=== PATIENT | female | born 1940 | race Caucasian/White ===

== ENCOUNTER 2019-02-22 20:30 | Emergency (ER) | payer MEDICARE, BC ==
[2019-02-22 20:47] VITALS: BP 155/95
[2019-02-22] MEDS ORDERED: DOXYcycline CAP(*) 100 MG PO ONE (21:15)
--- NOTE | 2019-02-22 21:15 | UC ---
Bite Injury/Animal HPI - HPI Summary HPI Summary: 79-year-old woman comes in with a chief complaint of a tick on her right lower leg. Patient noticed tonight bled on her own. She's not sure how long its been in there. There is a red ring around the area where she did take out. She 's not sure she got that are not. Feels well otherwise. - History of Current Complaint Chief Complaint: UCSkin Stated Complaint: TICK BITE Time Seen by Provider: 02/22/19 20:56 Pain Intensity: 0 - Allergies/Home Medications Allergies/Adverse Reactions: Allergies Allergy/AdvReac Type Severity Reaction Status Date / Time No Known Allergies Allergy Unverified 02/22/19 20:48 Home Medications: Home Medications Ibuprofen/Diphenhydramine HCl [Ibuprofen Pm 200-25 mg] 1 cap PO QPM 02/22/19 [ History Confirmed 02/22/19] PMH/Surg Hx/FS Hx/Imm Hx Previously Healthy: Yes - Surgical History Surgical History: Yes Surgery Procedure, Year, and Place: HYSTERECTOMY 15 YRS AGO, TENDON REPAIR SMALL FINGER RIGHT HAND - Family History Known Family History: Positive: Non-Contributory - Social History Alcohol Use: Daily Substance Use Type: None Smoking Status (MU): Never Smoked Tobacco Review of Systems All Other Systems Reviewed And Are Negative: Yes Constitutional: Positive: Negative Skin: Positive: Rash Eyes: Positive: Negative ENT: Positive: Negative Respiratory: Positive: Negative Cardiovascular: Positive: Negative Gastrointestinal: Positive: Negative Motor: Positive: Negative Neurovascular: Positive: Negative Musculoskeletal: Positive: Negative Neurological: Positive: Negative Psychological: Positive: Negative Is Patient Immunocompromised?: No Physical Exam Triage Information Reviewed: Yes Appearance: Well-Appearing, No Pain Distress, Well-Nourished Vital Signs: Initial Vital Signs Temp 97.8 F 02/22/19 20:41 Pulse 80 02/22/19 20:41 Resp 16 02/22/19 20:41 BP 155/95 02/22/19 20:41 Pulse Ox 99 02/22/19 20:41 Vital Signs Reviewed: Yes Eye Exam: Normal Eyes: Positive: Conjunctiva Clear Neck: Positive: Supple Respiratory: Positive: No respiratory distress Musculoskeletal Exam: Normal Musculoskeletal: Positive: Strength Intact, ROM Intact Neurological Exam: Normal Neurological: Positive: Alert, Muscle Tone Normal Psychological Exam: Normal Psychological: Positive: Normal Response To Family, Age Appropriate Behavior Skin: Positive: Other - Rt medial calf 2cm dameter circular eccymotic rash. No fb seen. Positive surrounding erythema. Bite Injury Course/Dx - Differential Dx/Diagnosis Provider Diagnosis: Tick bite of right lower leg with infection Discharge - Sign-Out/Discharge Documenting (check all that apply): Patient Departure All imaging exams completed and their final reports reviewed: No Studies - Discharge Plan Condition: Stable Disposition: HOME Prescriptions: DOXYcycline CAP(*) [DOXYcycline 100MG CAP(*)] 100 mg PO BID #27 cap Patient Education Materials: Lyme Disease (ED), Tick Bite (ED) Referrals: Deisy Contreras MD [Primary Care Provider] - Additional Instructions: FOLLOW UP WITH YOUR DOCTOR IF NOT COMPLETELY IMPROVED. GET REEVALUATED SOONER FOR ANY WORSENING OF YOUR CONDITION OR ANY QUESTIONS OR CONCERNS. - Billing Disposition and Condition Condition: STABLE Disposition: Home
== END 2019-02-22 21:15 | disposition home or self-care (01) ==
LOC: UCEAST 20:30
DX: T63.481A Toxic effect of venom of other arthropod, accidental (unintentional), initial encounter (principal); L08.89 Other specified local infections of the skin and subcutaneous tissue; Y92.9 Unspecified place or not applicable
CPT/HCPCS: 99212; A9270-GY; G0463

== ENCOUNTER 2019-06-29 09:18 | Emergency (ER) | payer MEDICARE, BC ==
[2019-06-29 09:33] VITALS: BP 135/81
--- NOTE | 2019-06-29 09:35 | UC ---
Hand/Wrist HPI - HPI Summary HPI Summary: 79 yo female slipped and fell on slick floor at the [facility] yesterday c/o right wrist pain - History Of Current Complaint Chief Complaint: UCUpperExtremity Stated Complaint: RIGHT WRSIT INJURY Time Seen by Provider: 06/29/19 09:34 Hx Obtained From: Patient Onset/Duration: Sudden Onset, Lasting Hours Severity Initially: Moderate Severity Currently: Mild Pain Intensity: 3 Pain Scale Used: 0-10 Numeric Character Of Pain: Dull, Aching Aggravating Factor(s): Movement Alleviating Factor(s): Rest Associated Signs And Symptoms: Positive: Swelling Related History: Dominant Hand Right Hands: 1 - pain - Allergies/Home Medications Allergies/Adverse Reactions: Allergies Allergy/AdvReac Type Severity Reaction Status Date / Time No Known Allergies Allergy Verified 06/29/19 09:34 Home Medications: Home Medications Acetaminophen [Pain Reliever] 1 tab PO ONCE 06/29/19 [History Confirmed 06/29/19 ] PMH/Surg Hx/FS Hx/Imm Hx Previously Healthy: Yes - Surgical History Surgical History: Yes Surgery Procedure, Year, and Place: HYSTERECTOMY 15 YRS AGO, TENDON REPAIR SMALL FINGER RIGHT HAND - Family History Known Family History: Positive: Non-Contributory - Social History Alcohol Use: Occasionally Substance Use Type: None Smoking Status (MU): Never Smoked Tobacco Review of Systems All Other Systems Reviewed And Are Negative: Yes Constitutional: Positive: Negative Skin: Positive: Negative Eyes: Positive: Negative ENT: Positive: Negative Respiratory: Positive: Negative Cardiovascular: Positive: Negative Gastrointestinal: Positive: Negative Genitourinary: Positive: Negative Motor: Positive: Negative Neurovascular: Positive: Negative Musculoskeletal: Positive: Arthralgia - right wrist Neurological: Positive: Negative Psychological: Positive: Negative Physical Exam Triage Information Reviewed: Yes Appearance: Well-Appearing, No Pain Distress, Well-Nourished Vital Signs: Initial Vital Signs Temp 98.9 F 06/29/19 09:28 Pulse 63 06/29/19 09:28 Resp 16 06/29/19 09:28 BP 135/81 06/29/19 09:28 Pulse Ox 100 06/29/19 09:28 Vital Signs Reviewed: Yes Eyes: Positive: Conjunctiva Clear ENT: Positive: Hearing grossly normal. Negative: Nasal congestion, Nasal drainage, Trismus, Muffled voice, Hoarse voice Neck: Positive: Supple, Nontender Respiratory: Positive: Lungs clear, Normal breath sounds, No respiratory distress, No accessory muscle use Cardiovascular: Positive: RRR, No Murmur Musculoskeletal: Positive: ROM Limited @ - right wrist, Other: - hips non tender / no pain with axial compression or internal/external rotation No Snuff box tenderness of right writst Neurological: Positive: Alert Psychological Exam: Normal Skin Exam: Normal - Additional Comments no midline spinal tenderness Diagnostics - Radiology No standard instances Radiology Interpretation Completed By: Radiologist Summary of Radiographic Findings: no fx Hand/Wrist Course/Dx - Differential Dx/Diagnosis Provider Diagnosis: Sprain of wrist, right Discharge - Sign-Out/Discharge Documenting (check all that apply): Patient Departure All imaging exams completed and their final reports reviewed: Yes - Discharge Plan Condition: Stable Disposition: HOME Patient Education Materials: Wrist Sprain (ED) Referrals: Maksim King MD [Medical Doctor] - Additional Instructions: splint recheck next week if wrist not completely better - Billing Disposition and Condition Condition: STABLE Disposition: Home
== END 2019-06-29 10:22 | disposition home or self-care (01) ==
LOC: UCEAST 09:18
DX: S63.501A Unspecified sprain of right wrist, initial encounter (principal); W01.0XXA Fall on same level from slipping, tripping and stumbling without subsequent striking against object, initial encounter; Y92.39 Other specified sports and athletic area as the place of occurrence of the external cause
CPT/HCPCS: 99212; G0463